=== PATIENT | male | born 1960 | race Hispanic/Latino ===

== ENCOUNTER 2018-10-18 02:03 | Emergency (ER) | payer OTHER ==
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
[2018-10-18] MEDS ORDERED: NACL 0.9% 1000 ML 1,000 ML IV ONE (02:58)
[2018-10-18] MEDS ORDERED: MORPHINE IV ONE (02:58)
[2018-10-18] MEDS ORDERED: ZOFRAN IV ONE (02:58)
[2018-10-18 03:14] LABS: Hematocrit 42.7 % (35.5-45.6); Hemoglobin 14.5 gm/dl (11.8-15.2); Mean Corpuscular HGB Conc 34 % (32-34); Mean Corpuscular Volume 83 fl (84-94); Platelet Count 263 K/mm3 (140-440); Red Blood Count 5.18 M/mm3 (3.65-5.03); Red Cell Distribution Width 13.7 % (13.2-15.2)
[2018-10-18] MEDS ORDERED: BENADRYL IV ONE (03:15)
[2018-10-18 03:28] LABS: Alanine Aminotransferase 19 units/L (7-56); Albumin 4.5 g/dL (3.9-5); BUN/Creatinine Ratio 18; Blood Urea Nitrogen 20 mg/dL (9-20); Calcium 9.4 mg/dL (8.4-10.2); Hemolysis Index 8
[2018-10-18 06:36] VITALS: BP 123/82
== END 2018-10-18 06:35 | disposition home or self-care (01) ==
LOC: ED 02:03
DX: T22.00XA Burn of unspecified degree of shoulder and upper limb, except wrist and hand, unspecified site, initial encounter (principal); X08.8XXA Exposure to other specified smoke, fire and flames, initial encounter; Y93.89 Activity, other specified; Y92.89 Other specified places as the place of occurrence of the external cause; Y99.8 Other external cause status
CPT/HCPCS: 36415; 80053; 82550; 85027; 96374; 96375; 99283; J1200; J2270; J2405; J7030